=== PATIENT | male | born 1980 | race Caucasian/White ===

== ENCOUNTER → 2016-10-29 | Outpatient (CLI) | payer OTHER, SELFPAY ==
[~2016-10-29] MED LIST: METHACHOLINE KIT (J7674) INH ONE
--- NOTE | 2016-10-29 09:20 | PFTRPT ---
Tech: Laura JEFFERSON RRT Age: 36 Sex: Male Race: Height: 67.00 Inches Weight: 172.00 Lbs BSA: 1.90 Diagnosis: R05 METHACHOLINE CHALLENGE REPORT: ORDERING PROVIDER: LATASHA Ritchie DATE OF SERVICE: 10/29/16 INTERPRETATION: The study was of excellent technical quality. Under protocol, methacholine was administered. At a dose of 0.25 mg (1.375 CDUs), a 23% decline in the FEV1 was noted. The PC20 of 0.14 is significant. Flow rates returned to baseline post bronchodilator administration. IMPRESSION: Positive methacholine challenge study. MTDD
== END ==
LOC: M CARPUL 08:36
PROVIDERS: ATTEND Nurse Practitioner Adult Health
DX: R05 Cough (principal); R94.2 Abnormal results of pulmonary function studies